=== PATIENT | male | born 1990 | race Two or more races ===

== ENCOUNTER 2022-03-09 08:19 | Emergency (ER) | payer OTHER ==
[~2022-03-09] VITALS: Ht 188 cm; Wt 86.2 kg
== END 2022-03-09 13:51 | disposition home or self-care (01) ==
LOC: ER 08:19
DX: S59.911A Unspecified injury of right forearm, initial encounter (principal); W18.30XA Fall on same level, unspecified, initial encounter; Y93.67 Activity, basketball; Y92.310 Basketball court as the place of occurrence of the external cause; Y99.9 Unspecified external cause status

== ENCOUNTER 2024-06-13 15:07 | Emergency (ER) | payer OTHER ==
[~2024-06-13] VITALS: Ht 188 cm; Wt 86.2 kg
[2024-06-13] MEDS ORDERED: DIPHENHYDRAMINE HCL 50 MG/ML VIAL 1ML IV ONE (16:30)
[2024-06-13] MEDS ORDERED: 0.9 % SODIUM CHLORIDE 1,000 ML IV ONE (16:30)
[2024-06-13] MEDS ORDERED: METHYLPREDNISOLONE SOD SUCC 40 MG VIAL IV ONE (16:30)
[2024-06-13] MEDS ORDERED: METHYLPREDNISOLONE SOD SUCC 40 MG VIAL ONE (16:43)
[2024-06-13] MEDS ORDERED: DIPHENHYDRAMINE HCL 50 MG/ML VIAL 1ML ONE (16:43)
[2024-06-13 18:01] LABS: HEMATOCRIT 41.9 % (39.0-48.0); HEMOGLOBIN 14.1 g/dL (13-16.00); MEAN CELL VOLUME 89.7 fL (80.0-100.00); MEAN CORPUSCULAR HEMOGLOBIN 30.2 pg (27.00-32.0); MEAN CORPUSCULAR HGB CONC 33.7 g/dl (32.0-36.0); PLATELET COUNT 271 K/uL (150-450); RED BLOOD COUNT 4.67 M/uL (4.00-6.00); RED CELL DISTRIBUTION WIDTH 15.1 % (11.5-14.5)
[2024-06-13] MEDS ORDERED: BENADRYL ALLERG25 MG PO (18:27)
[2024-06-13] MEDS ORDERED: MEDROLPACK PO (18:27)
[2024-06-13] MEDS ORDERED: PEPCID AC20 MG PO (18:27)
[2024-06-13] MEDS ORDERED: ONDANSETRON HCL 2 MG/ML VIAL ONE (18:44)
[2024-06-13] MEDS ORDERED: ONDANSETRON HCL 2 MG/ML VIAL IV ONE (18:45)
== END 2024-06-13 19:23 | disposition home or self-care (01) ==
LOC: ER 15:07
PROVIDERS: General Practice
DX: R21 Rash and other nonspecific skin eruption (principal); Z20.822 Contact with and (suspected) exposure to COVID-19
CPT/HCPCS: 36415; 96365; 99282; J1200; J2405; J3490; J7030